=== PATIENT | female | born 1960 | race Caucasian/White ===

== ENCOUNTER 2023-06-28 18:15 | Emergency (ER) | payer OTHER, SELFPAY ==
[2023-06-28] VITALS (14 sets, daily range): BP systolic 85–106; BP diastolic 51–56; PULSE 99–131; RESP 22; TEMP 38.2; O2SAT 95–100; BMI 17.4
--- NOTE | 2023-06-28 18:53 | ED.GENADULT ---
HPI - General Adult General Chief complaint: Weakness Stated complaint: allergic reaction, shaking, vomiting Time Seen by Provider: 06/28/23 18:17 History of Present Illness HPI narrative: 63 year white female underwent a spinal fusion about 12 weeks ago at [facility] with [facility]. 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 She has had multiple drainages done of this process doxycycline injected to try and scarred down. She was having a obstructed drainage tube today and went to [facility] and had this replaced by Interventional Radiology about [address] home does not produce she developed shaking chills and felt sick and feverish her legs have been hurting she has a temp 100.7? the patient has an elevated pulse about 130 and she has felt more sick than typical after the replacement of the drain. She has worked with some with orthopedics spine surgeons and she has a number to call for them the patient clearly needs antibiotics aggressively and some blood cultures and IV fluid. Patient presents with a systolic blood pressure about 91 and a temperature 100.7? and pulse 0 131 as mention. Will start a workup including laboratory studies blood cultures and IV antibiotics and IV fluid, will consult with the somewhat orthopedic physicians. It may be reasonable to have her return back to [facility] where this has all been cared for. Related Data Home Medications Medication Instructions Recorded Confirmed Synthroid PO DAILY 06/28/23 calcium PO DAILY 06/28/23 iron PO DAILY 06/28/23 methocarbamol PO PRN 06/28/23 oxycodone 5 mg tablet 5 mg PO Q4-6H PRN 06/28/23 06/28/23 spironolactone .ROUTE 06/28/23 Allergies Allergy/AdvReac Type Severity Reaction Status Date / Time No Known Drug Allergies Allergy Verified 06/28/23 18:44 Review of Systems Status of ROS: Reports: 6 or more systems reviewed and unremarkable except as noted in History and below [facility] Social History Smoking Status: Never smoker Do you use any of these nicotine containing products: None How often do you have a drink containing alcohol: never How often do you have six or more drinks on one occasion: Never AUDIT-C Alcohol total score: 0 Non-prescribed substance use: denies use service: No Exam Narrative: Exam Narrative: Objective: Temp 100.7? systolic blood pressure 91 pulse 131 Alert orient x3 No cyanosis Juan Ramon respiratory rate appears normal Lungs are clear pulse regular abdomen has the drain looks intact it is draining fluid serosanguineous it appears clear non and not purulent she has no rebound in her abdomen extremities without edema neurologic nonfocal Const: Vital Signs, click to edit/add: Vital Signs - 24 hr 06/28/23 18:31 06/28/23 18:35 06/28/23 18:41 Temperature 100.7 F H Pulse Rate 113 H 115 H Pulse Rate [Pulse Oximeter] 131 H Respiratory Rate 22 Blood Pressure 92/56 L Blood Pressure [Ri ght Upper Arm] 91/54 L Pulse Oximetry 95 99 99 Oxygen Delivery Me thod Room Air 06/28/23 18:45 06/28/23 18:52 06/28/23 19:00 Temperature Pulse Rate 112 H 101 H Pulse Rate [Pulse Oximeter] Respiratory Rate Blood Pressure Blood Pressure [Ri ght Upper Arm] Pulse Oximetry 99 100 96 Oxygen Delivery Me thod 06/28/23 19:01 06/28/23 19:15 06/28/23 19:22 Temperature Pulse Rate 99 101 H Pulse Rate [Pulse Oximeter] Respiratory Rate Blood Pressure 90/51 L 106/55 L Blood Pressure [Ri ght Upper Arm] Pulse Oximetry 97 100 Oxygen Delivery Me thod 06/28/23 19:30 06/28/23 19:32 06/28/23 19:33 Temperature Pulse Rate 108 H 105 H 106 H Pulse Rate [Pulse Oximeter] Respiratory Rate Blood Pressure 85/51 L Blood Pressure [Ri ght Upper Arm] Pulse Oximetry 100 99 99 Oxygen Delivery Me thod 06/28/23 19:43 06/28/23 19:45 Temperature Pulse Rate 102 H Pulse Rate [Pulse Oximeter] Respiratory Rate Blood Pressure 97/51 L Blood Pressure [Ri ght Upper Arm] Pulse Oximetry 96 Oxygen Delivery Me thod Course Vital Signs Vital signs: Initial Vital Signs Temperature 100.7 F H 06/28/23 18:31 Temperature Source Temporal Artery Scan 06/28/23 18:31 Pulse Rate 131 H 06/28/23 18:31 Respiratory Rate 22 06/28/23 18:31 Blood Pressure 91/54 L 06/28/23 18:31 Blood Pressure Mean 66 L 06/28/23 18:31 Blood Pressure Position Sitting 06/28/23 18:31 Pulse Oximetry 95 06/28/23 18:31 Oxygen Delivery Method Room Air 06/28/23 18:31 Vital Signs Temperature 100.7 F H 06/28/23 18:31 Pulse Rate 131 H 06/28/23 18:31 Respiratory Rate 22 06/28/23 18:31 Blood Pressure 91/54 L 06/28/23 18:31 Pulse Oximetry 95 06/28/23 18:31 Oxygen Delivery Method Room Air 06/28/23 18:31 Temperature 100.7 F H 06/28/23 18:31 Pulse Rate 102 H 06/28/23 19:45 Respiratory Rate 22 06/28/23 18:31 Blood Pressure 97/51 L 06/28/23 19:43 Pulse Oximetry 96 06/28/23 19:45 Oxygen Delivery Method Room Air 06/28/23 18:31 Medications Administered Medications: Generic Name Dose Route Start Last Admin Trade Name Freq PRN Reason Stop Dose Admin Sodium Chloride 1,000 mls @ 6,000 mls/hr 06/28/23 19:00 06/28/23 19:54 0.9 % Sodium Chloride 1000 Ml IV 06/28/23 19:09 6,000 mls/hr .Q10M ARGENIS Administration Piperacillin Sod/Tazobactam 100 mls @ 200 mls/hr 06/28/23 18:59 06/28/23 20:03 Sod 4.5 gm/ Sodium Chloride IVPB 06/28/23 19:00 Infused ONCE ONE Infusion Vancomycin HCl 1,000 mg/ 510 mls @ 255 mls/hr 06/28/23 18:59 06/28/23 19:54 Sodium Chloride IVPB 06/28/23 19:00 255 mls/hr ONCE ONE Administration Protocol Sodium Chloride 1,000 mls @ 6,000 mls/hr 06/28/23 19:00 06/28/23 20:03 0.9 % Sodium Chloride 1000 Ml IV 06/28/23 19:09 Infused .Q10M ARGENIS Infusion Lorazepam 1 mg 06/28/23 18:52 06/28/23 19:17 Lorazepam 2 Mg/Ml Inj IVP 06/28/23 18:53 1 mg ONCE ONE Administration Morphine Sulfate 2 mg 06/28/23 18:52 06/28/23 19:20 Morphine 4 Mg/Ml Inj IVP 06/28/23 18:53 2 mg ONCE ONE Administration Ondansetron HCl 4 mg 06/28/23 18:52 06/28/23 19:17 Ondansetron 2 Mg/Ml Inj IVP 06/28/23 18:53 4 mg ONCE ONE Administration Medical Decision Making MDM Narrative Medical decision making narrative: [age] year white female with a lymphocele or seroma in her abdomen status post anterior-posterior fusion surgery about 12 weeks ago, now with status post drain changed today and doxycycline infusion with the hope that it would scar down the lymphocele, but now with shaking chills fever and evidence of hypotension and possible sepsis. The patient will be treated with IV vancomycin, IV Zosyn. Will need a repeat assessment by Interventional Radiology likely ID and likely spine surgeon. Will discuss with the [facility] team about transfer back to [facility]. Will ensure the patient's instability at this point at the here. Addendum 7:13 p.m. I did talk to miss harper in [place] at [phone], who is on-call for Dr. Olivarez who was her spine surgeon. She felt that the patient should be transferred back to [facility]. I would agree we are unable to care for her with her level of need at this possible. She will need IR probably ID in and possibly in ICU. Will start fluid in a 2 L bolus and also do vanco and Zosyn. Disposition pending [facility] response. I will contact our ER about transfer. Patient will need transfer via ambulance ALS. Will complete transfer sheets patient is stable at this point and alert and awake and has been treated does above. Lab Data Labs: Lab Results 06/28/23 Range/Units 18:59 WBC 8.99 (4.50-11.00) K/uL RBC 4.43 (4.00-5.20) m/uL Hgb 12.5 (12.0-16.0) gm/dL Hct 38.7 (33.0-51.0) % MCV 87 (80-100) fL MCH 28 (26-34) pg MCHC 32 (32-36) gm/dL RDW Coeff of Chauncey 14.4 (11.5-15.5) % Plt Count 346 (140-440) K/uL Neut % (Auto) 76.9 H (42.0-72.0) % Lymph % (Auto) 14.3 L (20-44) % [place] % (Auto) 7.5 (0.0-11.0) % Eos % (Auto) 0.3 (0.0-7.0) % Baso % (Auto) 0.2 (0.0-3.0) % Neut # (Auto) 6.90 (1.7-7.0) K/uL Lymph # (Auto) 1.30 (0.90-2.90) K/uL [place] # (Auto) 0.70 (0.00-0.90) K/UL Eos # (Auto) 0.03 (0.00-0.50) K/uL Baso # (Auto) 0.02 (0.00-0.30) K/uL Abs Immat Gran (auto) 0.07 (0.00-0.30) K/uL Imm/Tot Granulo (auto) 0.8 % Sodium 133 L (135-149) mmol/L Potassium 3.9 (3.6-5.1) mmol/L Chloride 102 (96-114) mmol/L Carbon Dioxide 24 (20-32) mmol/L Anion Gap 7 (7-15) mEq/L BUN 14 (7-30) mg/dL Creatinine 0.6 (0.5-1.5) mg/dL Estimated Creat Clear 43.95 Estimated GFR 100 ml/min Glucose 122 H (60-115) mg/dL Calcium 9.0 (8.4-10.6) mg/dL Total Bilirubin 0.6 (0.1-1.5) mg/dL Direct Bilirubin 0.2 (0.0-0.5) mg/dL AST 30 (12-35) U/L ALT 17 (4-35) U/L Alkaline Phosphatase 77 (40-150) U/L Total Protein 6.9 (6.0-8.3) g/dL Albumin 3.6 (3.3-5.0) g/dL Amylase 58 (18-89) U/L Discharge Plan Discharge Clinical Impression: Fever, Rigors Patient Disposition: Xfer Other Prescriptions: No Action oxycodone 5 mg tablet 5 mg PO Q4-6H PRN Synthroid PO DAILY spironolactone .ROUTE calcium PO DAILY iron PO DAILY methocarbamol PO PRN Stand Alone Forms: [employer] Info Instructions
[2023-06-28] MEDS: 0.9 % SODIUM CHLORIDE 1000 ml 1,000 ML 6000 ML IV ×2 (19:00→19:54)
[2023-06-28] MEDS: LORazepam 2 MG/ML inj 1 MG IVP (19:17)
[2023-06-28] MEDS: ONDANSETRON 2 MG/ML inj 4 MG IVP (19:17)
[2023-06-28] MEDS: MORPHINE 4 MG/ML INJ 2 MG IVP (19:20)
[2023-06-28] MEDS: PIPERACILLIN/TAZOBACTAM 4.5 GM in 0.9 % SODIUM CHLORIDE Mini-bag 100 ML IVPB (19:27)
[2023-06-28 19:57] LABS: Basophils Absolute Auto 0.02 K/uL (0.00-0.30); Basophils Percent Auto 0.2 % (0.0-3.0); Eosinophils Absolute Auto 0.03 K/uL (0.00-0.50); Eosinophils Percent Auto 0.3 % (0.0-7.0); Hematocrit 38.7 % (33.0-51.0); Hemoglobin* 12.5 gm/dL (12.0-16.0); Immature Granulocytes Abs Auto 0.07 K/uL (0.00-0.30); Immature Granulocytes Pct Auto 0.8 %; Lymphocytes Percent Auto 14.3 % (20-44); Mean Corpuscular HGB Conc 32 gm/dL (32-36); Mean Corpuscular Hemoglobin 28 pg (26-34); Mean Corpuscular Volume 87 fL (80-100); Monocytes Percent Auto 7.5 % (0.0-11.0); Neutrophils Percent Auto 76.9 % (42.0-72.0); Platelet Count* 346 K/uL (140-440); RDW Coefficient of Variation % 14.4 % (11.5-15.5); Red Blood Count 4.43 m/uL (4.00-5.20); White Blood Count* 8.99 K/uL (4.50-11.00)
[2023-06-28 19:59] LABS: Albumin* 3.6 g/dL (3.3-5.0); Chloride* 102 mmol/L (96-114); Sodium* 133 mmol/L (135-149)
[2023-06-28 20:00] LABS: Potassium* 3.9 mmol/L (3.6-5.1)
[2023-06-28 20:02] LABS: Alkaline Phosphatase* 77 U/L (40-150); Amylase* 58 U/L (18-89); Anion Gap 7 mEq/L (7-15); Aspartate Amino Transferase* 30 U/L (12-35); Bilirubin Direct* 0.2 mg/dL (0.0-0.5); Bilirubin Total* 0.6 mg/dL (0.1-1.5); Blood Urea Nitrogen* 14 mg/dL (7-30); Carbon Dioxide* 24 mmol/L (20-32); Creatinine* 0.6 mg/dL (0.5-1.5); Est. Creatinine Clearance* 43.95; Estimated Glomerular Filt Rate 100 ml/min; Glucose* 122 mg/dL (60-115); Total Protein* 6.9 g/dL (6.0-8.3)
[2023-06-28 20:03] LABS: Alanine Aminotransferase* 17 U/L (4-35)
[2023-06-28 20:04] LABS: Slide Review Reflex No
[2023-06-28 20:34] LABS: C Reactive Protein* 27.3 mg/dL (0.5-1.0)
== END 2023-06-28 20:19 | disposition other institution (70) ==
LOC: ED 19:17
PROVIDERS: Emergency Provider Family Medicine
DX: R50.9 Fever, unspecified (principal); R53.1 Weakness
CPT/HCPCS: 36415; 80048; 80076; 82150; 85025; 86140; 87040; 94761; 96365; 96375; 99285; J2060; J2270; J2405; J2543; J3370; J7030

== ENCOUNTER 2023-06-28 19:55 | Outpatient (CLI) | payer OTHER, SELFPAY | END 2023-06-28 19:56 | disposition home or self-care (01) | LOC: AMB 06-29 09:42 | PROVIDERS: Visit Provider Family Medicine | DX: A41.9 Sepsis, unspecified organism (principal); R53.1 Weakness; R11.2 Nausea with vomiting, unspecified | CPT/HCPCS: A0425; A0434 ==